=== PATIENT | male | born 1980 | race Caucasian/White ===

== ENCOUNTER 2019-07-12 14:03 | Emergency (ER) | payer MEDICAID ==
[~2019-07-12] VITALS: Ht 172.7 cm; Wt 90.0 kg
[2019-07-12] MEDS ORDERED: CefTRIAXone 2gm/D5W 50ml 50 ML IV ONE (16:00)
[2019-07-12] MEDS ORDERED: vancomycin/NS 1 GM ADD-VANTAGE 250 ML IV ONE (16:00)
[2019-07-12 16:33] LABS: BASOPHILS % (AUTO) 0.5 % (0-1); EOSINOPHILS # (AUTO) 0.3 X10'3 (0-0.9); EOSINOPHILS % (AUTO) 3.4 % (0-6); HEMATOCRIT 41.2 % (42.0-52.0); HEMOGLOBIN 13.9 g/dl (14.0-17.9); LYMPHOCYTES # (AUTO) 2.3 X10'3 (1.1-4.8); LYMPHOCYTES % (AUTO) 24.8 % (21-51); MEAN CORPUSCULAR HEMOGLOBIN 28.9 PG (27.0-31.0); MEAN CORPUSCULAR HGB CONC 33.6 g/dL (33.0-36.5); MEAN CORPUSCULAR VOLUME 86.2 FL (78-98); MEAN PLATELET VOLUME 8.8 FL (7.4-10.4); MONOCYTES # (AUTO) 0.7 X10'3 (0-0.9); MONOCYTES % (AUTO) 6.9 % (2-12); NEUTROPHILS # (AUTO) 6.1 X10'3 (1.8-7.7); NEUTROPHILS % (AUTO) 64.4 % (42-75); PLATELET COUNT 244 X10'3 (140-440); RED BLOOD COUNT 4.78 X10'6 (4.70-6.10); RED CELL DISTRIBUTION WIDTH 12.5 % (11.5-14.5); WHITE BLOOD COUNT 9.4 X10'3 (4.5-11.0)
[2019-07-12 16:41] LABS: ALANINE AMINOTRANSFERASE 20 U/L (12-78); ALBUMIN 3.6 G/DL (3.4-5.0); ALBUMIN/GLOBULIN RATIO 0.8 (1.1-1.5); ALKALINE PHOSPHATASE 73 IU/L (46-116); ANION GAP 9 (8-16); ASPARTATE AMINO TRANSFERASE 26 U/L (10-37); BILIRUBIN,TOTAL 0.4 MG/DL (0.1-1.0); BLOOD UREA NITROGEN 16 MG/DL (7-18); BUN/CREATININE RATIO 15.5 (5.4-32.0); CALCIUM 8.6 MG/DL (8.5-10.1); CHLORIDE 106 MMOL/L (99-107); CREATININE 1.03 MG/DL (0.60-1.10); GLUCOSE 120 MG/DL (70-104); SODIUM 142 MMOL/L (135-145); TOTAL CARBON DIOXIDE 27.2 MMOL/L (24-32); TOTAL PROTEIN 8.3 G/DL (6.4-8.2); eGFR 80 ML/MIN
[2019-07-12] MEDS ORDERED: CEPH-572 PO (16:44)
[2019-07-12] MEDS ORDERED: IBUP-1984 PO (16:44)
[2019-07-12] MEDS ORDERED: DOXY100C76 PO (16:44)
[2019-07-12] MEDS ORDERED: iohexol 300mg/ml 100ml inj. ONE (17:05)
--- NOTE | 2019-07-12 17:08 | NUR ---
TO CT VIA W/C
--- NOTE | 2019-07-12 17:09 | NUR ---
WAITING ABX FROM PHARMACY
[2019-07-12] MEDS ORDERED: ketorolac trometh. 30mg/ml inj. IV ONE (17:55)
[2019-07-12] MEDS ORDERED: LIDOcaine 1% W/epiNEPHrine 1:200,000 10ml vial IJ ONE (18:40)
--- NOTE | 2019-07-12 18:46 | NUR ---
MOVED FROM [place] [id number] TO [facility]. DR. REN AT BEDSIDE FOR I&D.
[2019-07-12 19:06] VITALS: BP 163/96
== END 2019-07-12 19:50 | disposition home or self-care (01) ==
LOC: ER 14:03
DX: L03.114 Cellulitis of left upper limb (principal); F15.90 Other stimulant use, unspecified, uncomplicated; Z72.89 Other problems related to lifestyle; Z79.899 Other long term (current) drug therapy
CPT/HCPCS: 10060; 36415; 73201; 80053; 83605; 84145; 85025; 85610; 87040; 96365; 96368; 96375; 99285; J0696; J1885; J3370; Q9967

== ENCOUNTER 2019-10-12 08:27 | Emergency (ER) | payer MEDICAID ==
[~2019-10-12] VITALS: Ht 165.1 cm; Wt 72.7 kg
[2019-10-12 08:46] VITALS: BP 162/113
[2019-10-12] MEDS ORDERED: ONDA8TAB6 PO (08:52)
[2019-10-12] MEDS ORDERED: SULF1TAB49 PO (08:52)
== END 2019-10-12 09:02 | disposition home or self-care (01) ==
LOC: ER 08:28
DX: L02.31 Cutaneous abscess of buttock (principal); F15.90 Other stimulant use, unspecified, uncomplicated; Z72.89 Other problems related to lifestyle; Z79.899 Other long term (current) drug therapy
CPT/HCPCS: 99283

== ENCOUNTER 2019-11-05 18:42 | Emergency (ER) | payer MEDICAID ==
[~2019-11-05] VITALS: Ht 165.1 cm; Wt 69.8 kg
[~2019-11-05 18:42] MED LIST: ONDA8TAB6 PO
[2019-11-05 18:44] VITALS: BP 145/79
[2019-11-05] MEDS ORDERED: triamcinolone acetonide 40mg/ml inj IM ONE (19:25)
[2019-11-05] MEDS ORDERED: FAMO10TA41 PO (19:27)
[2019-11-05] MEDS ORDERED: DIPH25TA62 PO (19:27)
== END 2019-11-05 19:47 | disposition home or self-care (01) ==
LOC: ER 18:42
DX: T38.0X1A Poisoning by glucocorticoids and synthetic analogues, accidental (unintentional), initial encounter (principal); L23.5 Allergic contact dermatitis due to other chemical products; M79.89 Other specified soft tissue disorders; F15.90 Other stimulant use, unspecified, uncomplicated; Z72.89 Other problems related to lifestyle; Z79.899 Other long term (current) drug therapy; Y92.89 Other specified places as the place of occurrence of the external cause
CPT/HCPCS: 96372; 99283; J3301

== ENCOUNTER 2019-11-14 20:04 | Emergency (ER) | payer MEDICAID ==
[~2019-11-14] VITALS: Ht 165.1 cm; Wt 68.1 kg
[~2019-11-14 20:04] MED LIST changes: +DIPH25TA62 PO; +FAMO10TA41 PO
[2019-11-14] MEDS ORDERED: triamcinolone acetonide 40mg/ml inj IM ONE (20:30)
[2019-11-14] MEDS ORDERED: dexamethasone 4mg/ml inj IM ONE (20:30)
[2019-11-14 20:44] VITALS: BP 130/77
== END 2019-11-14 20:46 | disposition home or self-care (01) ==
LOC: ER 20:05
DX: L23.7 Allergic contact dermatitis due to plants, except food (principal); F15.90 Other stimulant use, unspecified, uncomplicated; Z72.89 Other problems related to lifestyle; Z79.899 Other long term (current) drug therapy
CPT/HCPCS: 96372; 99284; J1100; J3301

== ENCOUNTER 2020-02-26 12:38 | Emergency (ER) | payer MEDICAID ==
[~2020-02-26] VITALS: Ht 175.3 cm; Wt 90.0 kg
[~2020-02-26 12:38] MED LIST changes: +NALO4SPR NS
[2020-02-26 13:02] VITALS: BP 154/86
[2020-02-26] MEDS ORDERED: ONDA4TAB6 PO (13:36)
== END 2020-02-26 13:58 | disposition home or self-care (01) ==
LOC: ER 12:39
DX: Z00.00 Encounter for general adult medical examination without abnormal findings (principal); F15.90 Other stimulant use, unspecified, uncomplicated; F11.90 Opioid use, unspecified, uncomplicated; Z72.89 Other problems related to lifestyle; Z79.899 Other long term (current) drug therapy
CPT/HCPCS: 99283

== ENCOUNTER 2020-06-08 17:29 | Emergency (ER) | payer MEDICAID ==
[~2020-06-08] VITALS: Ht 165.1 cm; Wt 7.3 kg
[~2020-06-08 17:29] MED LIST changes: +ONDA4TAB6 PO
[2020-06-08 17:52] VITALS: BP 147/96
[2020-06-08] MEDS ORDERED: METH4TAB81 PO (19:16)
[2020-06-08] MEDS ORDERED: ketorolac trometh. 30mg/ml inj. IM ONE (19:20)
[2020-06-08] MEDS ORDERED: ketorolac tromethamine 15mg/ml inj. IM ONE (19:20)
== END 2020-06-08 19:50 | disposition home or self-care (01) ==
LOC: ER 17:30
DX: M25.562 Pain in left knee (principal); F15.90 Other stimulant use, unspecified, uncomplicated; F11.90 Opioid use, unspecified, uncomplicated; Z72.89 Other problems related to lifestyle; Z79.899 Other long term (current) drug therapy
CPT/HCPCS: 29505; 73564; 96372; 99283; J1885

== ENCOUNTER 2020-12-03 20:59 | Emergency (ER) | payer MEDICAID ==
[~2020-12-03] VITALS: Ht 165.1 cm; Wt 77.3 kg
[~2020-12-03 20:59] MED LIST changes: +METH4TAB81 PO
[2020-12-03 23:56] LABS: CLARITY,URINE CLOUDY (Clear); COLOR,URINE YELLOW (Yellow); GLUCOSE, URINE NEGATIVE (Neg); KETONES,URINE NEGATIVE (Neg); LEUKOCYTE ESTERASE ,URINE SMALL (Neg); NITRITES, URINE NEGATIVE (Neg); OCCULT BLOOD,URINE LARGE (Neg); PROTEIN,URINE TRACE mg/dl (Neg); UA COLLECTION TYPE CLN CATCH MIDSTREAM; UROBILINOGEN,URINE 0.2 E.U/dL (0.2-1.0)
[2020-12-04 00:04] LABS: WBC,URINE TNTC /HPF (0-4)
[2020-12-04 00:05] LABS: BACTERIA,URINE FEW /HPF (Neg); SQUAMOUS EPITHELIAL CELL,UR FEW /LPF (FEW)
[2020-12-04 00:36] VITALS: BP 118/74
[2020-12-04] MEDS ORDERED: LISI20TA28 PO (00:36)
[2020-12-04] MEDS ORDERED: CefTRIAXone 1000mg IM Kit (w/lidocaine diluent) IM STA (01:13)
[2020-12-04] MEDS ORDERED: DOXY100C43 PO (01:19)
== END 2020-12-04 02:03 | disposition home or self-care (01) ==
LOC: ER 21:07
DX: N34.2 Other urethritis (principal); I10 Essential (primary) hypertension; F15.10 Other stimulant abuse, uncomplicated; F14.10 Cocaine abuse, uncomplicated
CPT/HCPCS: 36415; 81001; 87088; 87491; 87591; 96372; 99283; J0696